=== PATIENT | male | born 1960 | race Caucasian/White ===

== ENCOUNTER → 2017-10-18 | Outpatient (CLI) | payer OTHER | LOC: FIMAGING 08:05 | PROVIDERS: ATTEND Family Medicine | DX: M51.05 Intervertebral disc disorders with myelopathy, thoracolumbar region (principal); M51.85 Other intervertebral disc disorders, thoracolumbar region ==

== ENCOUNTER → 2018-09-15 | Outpatient (CLI) | payer OTHER | LOC: FCPNEURO 10:01 ==